=== PATIENT | female | born 1960 | race Caucasian/White ===

== ENCOUNTER 2019-07-03 15:58 | Emergency (ER) | payer BC ==
[~2019-07-03] VITALS: Ht 170.2 cm; Wt 88.6 kg
--- NOTE | 2019-07-03 16:38 | NUR ---
Chest xray completed.
[2019-07-03 16:47] LABS: BASOPHILS # (AUTO) 0.1 X10'3 (0-0.2); BASOPHILS % (AUTO) 0.9 % (0-1); EOSINOPHILS # (AUTO) 0.5 X10'3 (0-0.9); EOSINOPHILS % (AUTO) 4.5 % (0-6); HEMOGLOBIN 13.5 g/dl (12.0-16.0); LYMPHOCYTES # (AUTO) 2.8 X10'3 (1.1-4.8); LYMPHOCYTES % (AUTO) 26.8 % (21-51); MEAN CORPUSCULAR HEMOGLOBIN 29.5 PG (27.0-31.0); MEAN CORPUSCULAR HGB CONC 33.7 g/dL (33.0-36.5); MEAN CORPUSCULAR VOLUME 87.4 FL (78-98); MEAN PLATELET VOLUME 8.9 FL (7.4-10.4); MONOCYTES # (AUTO) 0.6 X10'3 (0-0.9); MONOCYTES % (AUTO) 6.2 % (2-12); NEUTROPHILS # (AUTO) 6.3 X10'3 (1.8-7.7); NEUTROPHILS % (AUTO) 61.6 % (42-75); PLATELET COUNT 310 X10'3 (140-440); RED BLOOD COUNT 4.58 X10'6 (4.20-5.60); RED CELL DISTRIBUTION WIDTH 13.9 % (11.5-14.5); WHITE BLOOD COUNT 10.3 X10'3 (4.5-11.0)
[2019-07-03 16:49] LABS: D-DIMER 0.53 MG/L FEU (0-0.50)
[2019-07-03 17:14] LABS: ALANINE AMINOTRANSFERASE 21 U/L (12-78); ALBUMIN 3.7 G/DL (3.4-5.0); ALBUMIN/GLOBULIN RATIO 0.8 (1.1-1.5); ALKALINE PHOSPHATASE 67 IU/L (46-116); ANION GAP 8 (8-16); ASPARTATE AMINO TRANSFERASE 21 U/L (10-37); BILIRUBIN,TOTAL 0.4 MG/DL (0.1-1.0); BLOOD UREA NITROGEN 18 MG/DL (7-18); BUN/CREATININE RATIO 18.4 (6.6-38.0); CALCIUM 10.4 MG/DL (8.5-10.1); CHLORIDE 102 MMOL/L (99-107); CREATININE 0.98 MG/DL (0.40-0.90); GLUCOSE 115 MG/DL (70-104); SODIUM 140 MMOL/L (135-145); TOTAL CARBON DIOXIDE 30.5 MMOL/L (24-32); TOTAL PROTEIN 8.5 G/DL (6.4-8.2); eGFR 58 ML/MIN
[2019-07-03 17:20] LABS: POTASSIUM 2.9 MMOL/L (3.5-5.1)
[2019-07-03] MEDS ORDERED: potassium chloride 10mEq ER tablet PO STA (17:34)
[2019-07-03] MEDS ORDERED: normal saline 1000ML IV soln IVB ONE (17:35)
[2019-07-03] MEDS ORDERED: iohexol 350MG/ML 100ml bottle IV ONE (17:49)
[2019-07-03 18:12] VITALS: BP 174/84
[2019-07-03] MEDS ORDERED: acetaminophen 325mg tablet PO ONE (20:10)
[2019-07-03] MEDS ORDERED: AZIT250T83 PO (20:22)
== END 2019-07-03 21:13 | disposition home or self-care (01) ==
LOC: ER 15:58
DX: R06.02 Shortness of breath (principal); Z20.828 Contact with and (suspected) exposure to other viral communicable diseases; R19.7 Diarrhea, unspecified; Z88.8 Allergy status to other drugs, medicaments and biological substances; Z91.013 Allergy to seafood
CPT/HCPCS: 36415; 71045; 71275; 80053; 84484; 85025; 85379; 87635; 93005; 96360; 99285; J7030; Q9967

== ENCOUNTER 2023-12-21 16:37 | Observation (INO) | payer MEDICARE, BC ==
[~2023-12-21] VITALS: Ht 170.2 cm; Wt 93.2 kg
[2023-12-21 17:25] LABS: BASOPHILS # (AUTO) 0.1 X10'3 (0-0.2); EOSINOPHILS # (AUTO) 0.3 X10'3 (0-0.9); EOSINOPHILS % (AUTO) 2.6 % (0-6); HEMATOCRIT 38.1 % (35.0-45.0); HEMOGLOBIN 12.8 g/dl (12.0-16.0); MEAN CORPUSCULAR HEMOGLOBIN 30.4 PG (27.0-31.0); MEAN CORPUSCULAR HGB CONC 33.7 g/dL (33.0-36.5); MEAN CORPUSCULAR VOLUME 90.4 FL (78-98); MONOCYTES # (AUTO) 0.8 X10'3 (0-0.9); MONOCYTES % (AUTO) 7.3 % (2-12); NEUTROPHILS # (AUTO) 6.9 X10'3 (1.8-7.7); NEUTROPHILS % (AUTO) 62.1 % (42-75); PLATELET COUNT 271 X10'3 (140-440); RED BLOOD COUNT 4.22 X10'6 (4.20-5.60); RED CELL DISTRIBUTION WIDTH 13.4 % (11.5-14.5); WHITE BLOOD COUNT 11.1 X10'3 (4.5-11.0)
[2023-12-21 17:35] LABS: ALANINE AMINOTRANSFERASE 45 U/L (12-78); ALBUMIN 3.6 G/DL (3.4-5.0); ALBUMIN/GLOBULIN RATIO 0.9 (1.1-1.5); ALKALINE PHOSPHATASE 86 IU/L (46-116); ANION GAP 10 (8-16); ASPARTATE AMINO TRANSFERASE 22 U/L (10-37); BILIRUBIN,TOTAL 0.3 MG/DL (0.1-1.0); BLOOD UREA NITROGEN 20 MG/DL (7-18); BUN/CREATININE RATIO 17.7 (10.0-20.0); CALCIUM 9.4 MG/DL (8.5-10.1); CHLORIDE 105 MMOL/L (99-107); CREATININE 1.13 MG/DL (0.40-0.90); GLUCOSE 105 MG/DL (70-104); POTASSIUM 3.4 MMOL/L (3.5-5.1); SODIUM 143 MMOL/L (135-145); TOTAL CARBON DIOXIDE 27.8 MMOL/L (24-32); TOTAL PROTEIN 7.7 G/DL (6.4-8.2); eCRCL 48 ML/MIN; eGFR 48 ML/MIN
[2023-12-21 17:42] LABS: PRO BRAIN NATRIURETIC PEPTIDE 149 PG/ML (0-125)
[2023-12-21] MEDS: mag hydrox/Alum hydrox/simeth 30ml oral suspension PO ONE (17:42)
[2023-12-21] MEDS: LIDOcaine 2% Viscous 15ml cup MM PRN (17:42)
[2023-12-21] MEDS ORDERED: metoprolol tartrate 1mg/ml inj IV PRN (19:55)
[2023-12-21] MEDS ORDERED: ondansetron/PF 4mg/2ml inj IV PRN (19:55)
[2023-12-21] MEDS: PERFLUTREN PROTEIN-A MICROSPHR (Optison) 0.22 MG/ML 3ML VIAL IV ONE (19:55)
[2023-12-21] MEDS ORDERED: magnesium hydroxide 30ml (MOM) UD suspension PO PRN (19:55)
[2023-12-21] MEDS ORDERED: aminophylline 250mg/10ml inj. IV PRN (19:55)
[2023-12-21] MEDS ORDERED: mag hydrox/Alum hydrox/simeth 30ml oral suspension PO PRN (19:55)
[2023-12-21] MEDS ORDERED: magnesium sulf-water 2g/50mL 50 ML IV PRN (19:55)
[2023-12-21] MEDS ORDERED: magnesium sulf-water 4G/100mL 100 ML IV PRN (19:55)
[2023-12-21] MEDS ORDERED: nitroGLYCERIN 0.4mg SUBLingual tab SL PRN ×2 (19:55→20:25)
[2023-12-21] MEDS ORDERED: magnesium Cl slow-release 64mg tablet PO PRN (19:55)
[2023-12-21] MEDS ORDERED: potassium Cl 20 mEq SR tablet PO PRN (19:55)
[2023-12-21] MEDS ORDERED: potassium Cl 40MEQ/1/2NS 520ml 520 ML IV PRN (19:55)
[2023-12-21] MEDS: docusate sod 100mg capsule PO SCH (20:00)
[2023-12-21] MEDS: K and/or MAG REPLACEMENT MC SCH (20:00)
[2023-12-21] MEDS: HYDROchlorothiazide 25mg tablet PO ONE (20:00)
[2023-12-21] MEDS ORDERED: DEXTROSE 15 GM of carb/4 tabs (each vial/BOTTLE has 4 tablets) PO PRN ×2 (20:25)
[2023-12-21] MEDS ORDERED: glucagon, human recombinant 1mg kit SUBCUT PRN (20:25)
[2023-12-21] MEDS ORDERED: dextrose 50%-water 50ml dispensing syringe IV PRN ×2 (20:25)
[2023-12-21] MEDS: hydrALAZINE 20mg/ml inj. IV ONE (20:29)
[2023-12-21] MEDS: INSULIN LISPRO 100 UNIT/ML INSULN.PEN MULTI-DOSE SQ SCH (21:00)
[2023-12-21] MEDS: amLODIPine 5mg tablet PO ONE (21:33)
[2023-12-21] MEDS ORDERED: LEVO100C4 PO (21:51)
[2023-12-21] MEDS ORDERED: HYDR25TA5 PO (21:52)
[2023-12-21 22:30] VITALS: BP 171/71; PULSE 60; RESP 12; TEMP 97.6; O2SAT 99
[2023-12-21] MEDS: potassium Cl 20 mEq SR tablet PO PRN (22:40)
[2023-12-22] VITALS (9 sets, daily range): BP systolic 128–200; BP diastolic 59–86; PULSE 63–102; RESP 14–17; TEMP 97.9; O2SAT 97–100
[2023-12-22] MEDS ORDERED: levoTHYROXINE 100mcg tablet PO SCH (07:00)
[2023-12-22 07:25] LABS: HEMOGLOBIN A1C 6.7 % (4.5-6.2)
[2023-12-22 07:54] LABS: ALBUMIN 3.2 G/DL (3.4-5.0); ANION GAP 12 (8-16); BLOOD UREA NITROGEN 17 MG/DL (7-18); BUN/CREATININE RATIO 18.7 (10.0-20.0); CALCIUM 9.3 MG/DL (8.5-10.1); CHLORIDE 108 MMOL/L (99-107); CHOLESTEROL 179 MG/DL (0-200); CREATININE 0.91 MG/DL (0.40-0.90); GLUCOSE 133 MG/DL (70-104); HDL CHOLESTEROL 36 MG/DL (35-60); LDL CHOLESTEROL 107 MG/DL (50-100); POTASSIUM 3.6 MMOL/L (3.5-5.1); SODIUM 142 MMOL/L (135-145); TOTAL CARBON DIOXIDE 22.4 MMOL/L (24-32); eCRCL 60 ML/MIN; eGFR 62 ML/MIN
[2023-12-22 07:55] LABS: TRIGLYCERIDES 134 MG/DL (20-135)
[2023-12-22] MEDS: atorvastatin 20mg tablet PO SCH (08:00)
[2023-12-22] MEDS ORDERED: HYDROchlorothiazide 25mg tablet PO SCH (08:00)
[2023-12-22] MEDS: aspirin 81mg tab.chew PO SCH (08:30)
[2023-12-22] MEDS: acetaminophen 325mg tablet PO PRN (10:08)
[2023-12-22] MEDS: regadenoson 0.4mg/5ml syringe IV PRN (11:04)
[2023-12-22] MEDS ORDERED: ESTR1TAB28 PO (12:02)
[2023-12-22] MEDS: HYDROchlorothiazide 25mg tablet PO ONE (14:05)
[2023-12-22] MEDS ORDERED: enoxaparin 60mg/0.6ml syringe SUBCUT SCH (19:00)
[2023-12-22] MEDS ORDERED: ATOR20TA66 PO (20:24)
[2023-12-23] MEDS ORDERED: HYDROchlorothiazide 25mg tablet PO SCH (08:00)
[2023-12-23] MEDS ORDERED: levoTHYROXINE 100mcg tablet PO SCH (08:00)
== END 2023-12-22 17:56 | disposition home or self-care (01) ==
LOC: ER 16:38 → ED HOLD 19:56 → PCU 3S 22:15
PROVIDERS: ADMIT Surgery Surgical Critical Care; ATTEND Family Medicine
DX: R07.89 Other chest pain (principal); I10 Essential (primary) hypertension; E03.9 Hypothyroidism, unspecified; E11.9 Type 2 diabetes mellitus without complications; J45.909 Unspecified asthma, uncomplicated; Z91.013 Allergy to seafood; Z88.8 Allergy status to other drugs, medicaments and biological substances; Z79.899 Other long term (current) drug therapy; Z90.710 Acquired absence of both cervix and uterus; Z90.49 Acquired absence of other specified parts of digestive tract; Z87.891 Personal history of nicotine dependence
CPT/HCPCS: 78452; 80048; 80053; 80061; 82948; 83036; 83880; 84484; 93005; 93017; 96374; 99284; A9500; G0378; 36415; 71045; 85025; 87081; 93306; J0360; J1815; J2785